=== PATIENT | female | born 1995 | race African-American/Black ===

== ENCOUNTER 2017-07-23 14:07 | Outpatient (CLI) | payer OTHER | END 2017-07-23 14:08 | disposition home or self-care (01) | LOC: MADLAB 14:07 | PROVIDERS: ATTEND Family Medicine | DX: Z34.02 Encounter for supervision of normal first pregnancy, second trimester (principal) | CPT/HCPCS: 36415; 82950 ==

== ENCOUNTER 2017-07-31 09:21 | Outpatient (CLI) | payer OTHER | END 2017-07-31 09:22 | disposition home or self-care (01) | LOC: MADLABBHPM 09:21 | PROVIDERS: ATTEND Family Medicine | DX: Z34.03 Encounter for supervision of normal first pregnancy, third trimester (principal) | CPT/HCPCS: 36415; 82951; 82952 ==

== ENCOUNTER 2017-08-13 01:36 | Emergency (ER) | payer OTHER ==
[2017-08-13] MEDS ORDERED: AMOXicillin 250 MG CAP ONE (02:32)
== END 2017-08-13 02:45 | disposition home or self-care (01) ==
LOC: MADERS 01:36
DX: O99.513 Diseases of the respiratory system complicating pregnancy, third trimester (principal); J02.9 Acute pharyngitis, unspecified; O99.89 Other specified diseases and conditions complicating pregnancy, childbirth and the puerperium; H65.91 Unspecified nonsuppurative otitis media, right ear; Z3A.30 30 weeks gestation of pregnancy
CPT/HCPCS: 87081; 87430; 99283